=== PATIENT | male | born 1960 | race Caucasian/White ===

== ENCOUNTER 2021-10-31 08:23 | Emergency (ER) | payer BC ==
[~2021-10-31] VITALS: Ht 182.9 cm; Wt 109.8 kg
[2021-10-31] MEDS ORDERED: ATORVASTATIN CA20 MG PO (08:32)
[2021-10-31] MEDS ORDERED: LISINOPRIL20 MG PO (08:32)
[2021-10-31] MEDS ORDERED: VAZALORE81 MG PO (08:33)
[2021-10-31] MEDS ORDERED: AMLODIPINE-OLM1 EAC2 PO (08:34)
[2021-10-31] MEDS ORDERED: HYDRODIURIL12.5 MG PO (08:36)
== END 2021-10-31 10:29 | disposition home or self-care (01) ==
LOC: ER 08:23
DX: R04.0 Epistaxis (principal)